=== PATIENT | male | born 1980 | race Caucasian/White ===

== ENCOUNTER 2018-09-04 12:25 | Emergency (ER) | payer OTHER ==
[2018-09-04] MEDS: Diphtheria,Pertussis(Acell),Tetanus Vaccine 0.5 ML SDV IM ONE (13:00)
--- NOTE | 2018-09-04 14:45 | EDM.PDOC ---
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 - History of Present Illness INITIAL COMMENTS - FREE TEXT/NARRATIVE: Pt kicked in face by a cow at a rachel Questionable LOC for just a few seconds Complains of laceration above bridge of nose and pain in nose No other complaints Tetanus not UTD Onset: Today, Sudden Location: Reports: Face Quality: Reports: Pressure Severity: Mild Context: Reports: Trauma ED ROS GENERAL - Review of Systems Review Of Systems: See Below Constitutional: Reports: No Symptoms HEENT: Reports: Nose Pain, Other (foreheadmlaceration) Respiratory: Reports: No Symptoms Cardiovascular: Reports: No Symptoms GI/Abdominal: Reports: No Symptoms Musculoskeletal: Reports: No Symptoms Neurological: Reports: No Symptoms ED EXAM, HEAD INJURY - Physical Exam Exam: See Below General Appearance: Alert, Mild Distress Head: Facial Tenderness, Other Ears: Normal TMs Nose: Nasal Swelling, Nasal Tenderness, Nasal Ecchymosis Throat/Mouth: Normal Oropharynx Neck: Non-Tender, Full Range of Motion Respiratory: Lungs Clear Cardiovascular: Regular Rate, Rhythm Extremities: Normal Range of Motion Neurologic: No Motor/Sensory Deficits, Alert (GCS 15), Normal Mood/Affect, Oriented x 3, Other (GCS 15) Skin: Other (forehead laceration) ED LACERATION/WOUND & BONITA PROC - Laceration/Wound Repair Forehead Lac/wound length in cm: 2 Appearance: Superficial, Linear Skin Prep: Saline Closed with: Dermabond Tetanus Status Addressed: Yes Course - Orders/Labs/Meds Orders: Active Orders 24 hr Category Date Time Status Vaccines to be Administered [RC] PER UNIT ROUTINE Care 09/04/18 12:42 Active Head wo Cont [CT] Stat Exams 09/04/18 12:40 Taken Max Facial Sinus wo Cont [CT] Stat Exams 09/04/18 12:40 Taken Meds: Medications Discontinued Medications Generic Name Dose Route Start Last Admin Trade Name Freq PRN Reason Stop Dose Admin Diphtheria/Tetanus/Acell Pertussis 0.5 ml 09/04/18 12:41 09/04/18 13:00 Adacel IM 09/04/18 12:42 0.5 ml .ONCE ONE Administration - Radiology Interpretation Free Text/Narrative:: Per radiology Non-displaced nasal bone fracture Departure - Departure Time of Disposition: 14:45 Disposition: Home, Self-Care 01 Condition: Good Clinical Impression: Nasal bone fracture Qualifiers: Encounter type: initial encounter Fracture type: closed Qualified Code(s): S02.2XXA - Fracture of nasal bones, initial encounter for closed fracture Laceration of forehead without complication Qualifiers: Encounter type: initial encounter Qualified Code(s): S01.81XA - Laceration without foreign body of other part of head, initial encounter - Discharge Information *PRESCRIPTION DRUG MONITORING PROGRAM REVIEWED*: Not Applicable *COPY OF PRESCRIPTION DRUG MONITORING REPORT IN PATIENT SHARON: Not Applicable Instructions: Nasal Fracture, [id number], Laceration Care, Adult Referrals: PCP,None [Primary Care Provider] - Forms: ED Department Discharge Additional Instructions: Keep wound clean Ice as needed Follow up in clinic - My Orders Last 24 Hours: My Active Orders 09/04/18 12:40 Head wo Cont [CT] Stat Max Facial Sinus wo Cont [CT] Stat 09/04/18 12:42 Vaccines to be Administered [RC] PER UNIT ROUTINE - Assessment/Plan Last 24 Hours: My Active Orders 09/04/18 12:40 Head wo Cont [CT] Stat Max Facial Sinus wo Cont [CT] Stat 09/04/18 12:42 Vaccines to be Administered [RC] PER UNIT ROUTINE
== END 2018-09-04 14:40 | disposition home or self-care (01) ==
LOC: LL.ED 12:25
DX: S02.2XXA Fracture of nasal bones, initial encounter for closed fracture (principal); S01.81XA Laceration without foreign body of other part of head, initial encounter; W55.22XA Struck by cow, initial encounter; Z23 Encounter for immunization
CPT/HCPCS: 12011; 70450; 70486; 90715; 99284

== ENCOUNTER 2018-12-31 17:24 | Emergency (ER) | payer OTHER ==
--- NOTE | 2018-12-31 17:33 | EDM.PDOC ---
ED HPI GENERAL MEDICAL PROBLEM - General Chief Complaint: Upper Extremity Injury/Pain Stated Complaint: right hand injury Time Seen by Provider: 12/31/18 17:25 Source of Information: Reports: Patient, Old Records ([facility] EMR. 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 No treatment or medications were performed prior to arrival to this facility. The patient is right-handed. He has not injured this hand in the past. No history of other injury, including head contusion, neck/back pain, chest wall pain, dyspnea, abdominal pain, paresthesias, neurological deficits, or other complaints. The patient also denies any recent fever, cough, wheezing, dyspnea, etc.. Onset: Today, Sudden Onset Date: 12/31/18 Onset Time: 17:00 Duration: Constant Location: Reports: Upper Extremity, Right. 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 [No Known Home Meds] 12/31/18 [History] Past Medical History HEENT History: Reports: Other (See Below) Other HEENT History: Nasal fracture by CT scan on 09/04/18. Musculoskeletal History: Reports: Fracture, Other (See Below) Other Musculoskeletal History: Nasal fracture as above. Neurological History: Reports: Head Trauma, Other (See Below). Denies: Concussion Other Neuro History: Head contusion on 09/04/18 without evidence of concussion. 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 ED EXAM, GENERAL - Physical Exam Exam: See Below Exam Limited By: Language Barrier General Appearance: Alert, WD/WN, No Apparent Distress Head: Atraumatic, Normocephalic. No: Facial Swelling, Facial Tenderness, Sinus Tenderness Neck: Normal Inspection, Supple, Non-Tender, Full Range of Motion. No: Lymphadenopathy (L), Lymphadenopathy (R), Thyromegaly Respiratory/Chest: No Respiratory Distress, Lungs Clear, Normal Breath Sounds, No Accessory Muscle Use, Chest Non-Tender. No: Pleural Rub, Retractions Cardiovascular: Normal Peripheral Pulses, Regular Rate, Rhythm, No Edema, No Gallop, No JVD, No Murmur, No Rub. No: Gallop/S3, Gallop/S4, Friction Rub Peripheral Pulses: 2+: Radial (L), Radial (R) GI/Abdominal: Normal Bowel Sounds, Soft, Non-Tender, No Organomegaly, No Distention, No Abnormal Bruit, No Mass, Pelvis Stable. No: Guarding (Male) Exam: Deferred Rectal (Males) Exam: Deferred Back Exam: Normal Inspection, Full Range of Motion. No: CVA Tenderness (L), CVA Tenderness (R), Muscle Spasm Extremities: Joint Swelling (Moderate distal dorsal right hand swelling with mild ecchymosis and moderate localized palpation pain with no deformity or evidence of dislocation, etc. 0.75 cm in diameter superficial laceration over the extensor surface of the third MCP area with no evidence of foreign body or significant bleeding). No: Pedal Edema, Radha's Sign Neurological: Alert, Oriented, CN II-XII Intact, Normal Cognition, Normal Gait, No Motor/Sensory Deficits Psychiatric: Normal Affect, Normal Mood Skin Exam: Ecchymosis (As above), Wound/Incision (As above). No: Diaphoretic, Lymphangitis ED TRAUMA EXTREMITY PROCEDURES - Splinting Right 2nd Digit Splint Site: Right hand Pre-Procedure NV Status: Normal Post-Procedure NV Status: Normal Splint Material: Other (3" x 12" preformed padded fiberglass splint material cut to fit and secured with 2 inch Sekou wraps 2 and cotton padding) Splint Design: Other (Short arm palmar splint including the entire second and third fingers) Applied & Form Fitted By: Provider Provider Post-Splint Application NV Check: NV Status Normal, Good Position Complications: No Course - Vital Signs Last Recorded V/S: Last Vital Signs Temp 37.1 C 12/31/18 17:31 Pulse 61 12/31/18 17:31 Resp 17 12/31/18 17:31 BP 112/81 12/31/18 17:31 Pulse Ox 97 12/31/18 17:31 Vital Signs - 24 hr 12/31/18 17:31 Temperature [ 37.1 C Oral] Pulse, 61 Peripheral [ Left Pulse Oximetry] Respiratory 17 Rate Blood Pressure 112/81 [Left Upper Arm ] O2 Sat by Pulse 97 Oximetry - Orders/Labs/Meds Orders: Active Orders 24 hr Category Date Time Status Hand Comp Min 3V Rt [CR] Stat Exams 12/31/18 17:36 Taken Obtain Past Medical Record [OM.PC] Routine Oth 12/31/18 17:36 Active Labs: None Meds: Medications Discontinued Medications Generic Name Dose Route Start Last Admin Trade Name Freq PRN Reason Stop Dose Admin Neomycin/Polymyxin/Bacitracin 1 each 12/31/18 18:03 Triple Antibiotic Oint TOP 12/31/18 18:04 ONETIME ONE - Radiology Interpretation Free Text/Narrative:: X-rays of the right hand, 3 views, shows evidence of nondisplaced, non- angulated midshaft horizontal fracture of the proximal phalanx of digit #2. No foreign body or evidence of other fractures, dislocations, etc. Departure - Departure Time of Disposition: 18:35 Disposition: Home, Self-Care 01 Condition: Good Clinical Impression: Abrasion Finger fracture, right Qualifiers: Encounter type: initial encounter Finger: index finger Fracture type: closed Phalanx: proximal Fracture alignment: nondisplaced Qualified Code(s): S62.640A - Nondisplaced fracture of proximal phalanx of right index finger, initial encounter for closed fracture - Discharge Information *PRESCRIPTION DRUG MONITORING PROGRAM REVIEWED*: Not Applicable *COPY OF PRESCRIPTION DRUG MONITORING REPORT IN PATIENT SHARON: Not Applicable Instructions: Finger Fracture, Adult, [id number], Cast or Splint Care, Adult , [id number] Referrals: Adrian Herron MD [Primary Care Provider] - Forms: ED Department Discharge, ED Return to Work/School Form Additional Instructions: 1. Followup with your regular provider in 7 days as directed for reevaluation and repeat x-rays of your right hand. Bring these discharge instructions with you to that visit. 2. Tylenol 650 mg by mouth every 4 hours and/or OTC ibuprofen 2-3 tabs by mouth every 6 hours with food as directed./needed. You may stagger these medications for 48-72 hours only, which essentially means that you are receiving a pain medication about every 2 hours. 3. Ice packs and hand elevation as directed 4. Your splint is to be worn at all times with limited use of your right hand including 10 pound lifting restriction, etc. as discussed. Keep splint clean and dry. 5. Immediately after this visit verify that your cellular telephone's voicemail has been activated and is empty. Also verify that your home telephone 's answering machine is operating properly and has space to receive messages. Note that it is sometimes necessary for us to be able to contact you at a later date to discuss your medical care. 6. Please remember that we are ALWAYS here for you and want to answer any questions you may have. Feel free to call the hospital any time and we call you back MARY. 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 Short arm palmar splint placed as above without complications. Work excuse and Workmen's Compensation forms were completed. Close follow-up by regular provider as per discharge instructions. Qualifiers: Encounter type: initial encounter Finger: index finger Fracture type: closed Phalanx: proximal Fracture alignment: nondisplaced Qualified Code(s ): S62.640A - Nondisplaced fracture of proximal phalanx of right index finger, initial encounter for closed fracture (2) Abrasion SNOMED Code(s): 905246225 Code(s): T14.8XXA - OTHER INJURY OF UNSPECIFIED BODY REGION, INITIAL ENCOUNTER Status: Acute Priority: High Current Visit: Yes Onset Date: Annotation/Comment:: Superficial abrasions not requiring laceration repair. Neosporin dressing with Adaptic Lasix by this provider. His tetanus booster is up-to-date with DTaP given in this facility on 09/04/18. - Problem List Review Problem List Initiated/Reviewed/Updated: Yes - My Orders Last 24 Hours: My Active Orders 12/31/18 17:36 Hand Comp Min 3V Rt [CR] Stat Obtain Past Medical Record [OM.PC] Routine - Assessment/Plan Last 24 Hours: My Active Orders 12/31/18 17:36 Hand Comp Min 3V Rt [CR] Stat Obtain Past Medical Record [OM.PC] Routine Assessment:: As above Plan: As above. Extensive precautions were given to the patient, who is in agreement with the treatment plan.
[2018-12-31] MEDS ORDERED: Bacitracin/Neomycin/Polymyxin B Oint 0.9 GM U/D Packet TOP ONE (18:03)
== END 2018-12-31 18:35 | disposition home or self-care (01) ==
LOC: LL.ED 17:24
DX: S62.640A Nondisplaced fracture of proximal phalanx of right index finger, initial encounter for closed fracture (principal); W55.22XA Struck by cow, initial encounter; Y99.0 Civilian activity done for income or pay
CPT/HCPCS: 29125; 73130-RT; 99283-25